=== PATIENT | female | born 1975 | race Caucasian/White ===

== ENCOUNTER 2017-10-03 17:28 | Emergency (ER) | payer BC ==
[2017-10-03 18:02] VITALS: BP 112/67
--- NOTE | 2017-10-03 18:04 | UC ---
UC General HPI - HPI Summary HPI Summary: pt is c/o a sinus infection. she describes this a thick yellow congestion, sinus pain and subjective fever and chills with worsening for over a week. no relief otc flush and decongestants. - History of Current Complaint Stated Complaint: SINUS COMPLAINT Time Seen by Provider: 10/03/17 17:57 Hx Obtained From: Patient Hx Last Menstrual Period: 5 yrs Onset/Duration: Gradual Onset Timing: Constant Aggravating: nothing Alleviating: nothing Associated Signs & Symptoms: Positive: Fever - Allergy/Home Medications Allergies/Adverse Reactions: Allergies Allergy/AdvReac Type Severity Reaction Status Date / Time various foods Allergy Stomach Uncoded 07/13/16 09:45 Cramps Home Medications: Home Medications L.acidoph,Paracasei, B.lactis [Probiotic] 1 each PO DAILY 10/03/17 [History Confirmed 10/03/17] Peppermint Capsule 1 tab PO DAILY 10/03/17 [History] PMH/Surg Hx/FS Hx/Imm Hx - Additional Past Medical History Additional PMH: sinusitis GI/ History: Gastroesophageal Reflux - Surgical History Surgical History: None Surgery Procedure, Year, and Place: C-Sections, 2006 2009. Uterine Ablation, 2010. Tubal Ligation, 2009 - Family History Known Family History: Positive: Hypertension - Social History Lives: With Family Alcohol Use: Occasionally Substance Use Type: None Smoking Status (MU): Never Smoked Tobacco - Immunization History Vaccination Up to Date: Yes Review of Systems Constitutional: Fever Skin: Negative Eyes: Negative ENT: Nasal Discharge, Sinus Congestion, Sinus Pain/Tenderness Respiratory: Negative Cardiovascular: Negative Gastrointestinal: Negative Genitourinary: Negative Motor: Negative Neurovascular: Negative Musculoskeletal: Negative Neurological: Negative Psychological: Negative Is Patient Immunocompromised?: No All Other Systems Reviewed And Are Negative: Yes Physical Exam Triage Information Reviewed: Yes Appearance: Well-Appearing Vital Signs Reviewed: Yes Eye Exam: Normal ENT: Positive: Pharynx normal, Nasal congestion, Nasal drainage - yellow, TMs normal, Sinus tenderness Neck: Positive: Supple, Nontender, No Lymphadenopathy Respiratory: Positive: Lungs clear, Normal breath sounds Cardiovascular: Positive: RRR, No Murmur Abdomen Description: Positive: Nontender, No Organomegaly, Soft Bowel Sounds: Positive: Present Neurological: Positive: Alert Psychological: Positive: Age Appropriate Behavior Skin Exam: Normal Course/Dx - Differential Dx - Multi-Symptom Provider Diagnoses: sinusitis Discharge - Sign-Out/Discharge Documenting (check all that apply): Discharge - Discharge Plan Condition: Stable Disposition: HOME Prescriptions: Amoxicillin/Clavulanate TAB* [Augmentin TAB 875*] 875 mg PO BID #20 tab Patient Education Materials: Sinusitis (ED) Referrals: Ramírez Bertrand MD [Primary Care Provider] - 7 Days - Billing Disposition and Condition Condition: STABLE Disposition: HOME
== END 2017-10-03 18:08 | disposition home or self-care (01) ==
LOC: UCCORT 17:28
DX: J32.9 Chronic sinusitis, unspecified (principal); R50.9 Fever, unspecified; K21.9 Gastro-esophageal reflux disease without esophagitis
CPT/HCPCS: 99212; G0463

== ENCOUNTER 2018-07-25 17:34 | Emergency (ER) | payer BC ==
[2018-07-25 19:14] VITALS: BP 118/64
--- NOTE | 2018-07-25 19:30 | UC ---
Throat Pain/Nasal [place] HPI - HPI Summary HPI Summary: Per nursing secretary "St for 1 day. Daughter + Strep on " -feels like shards of glass. has had strep. feels similar. + glands swollen. minimal cough. no sinus pain. gets sinus infections a lot - History of Current Complaint Chief Complaint: UCGeneralIllness Stated Complaint: SORE THROAT, FEVER Time Seen by Provider: 07/25/18 19:10 Hx Last Menstrual Period: 5 yrs Pain Intensity: 6 - Allergies/Home Medications Allergies/Adverse Reactions: Allergies Allergy/AdvReac Type Severity Reaction Status Date / Time various foods Allergy Stomach Uncoded 07/25/18 19:15 Cramps PMH/Surg Hx/FS Hx/Imm Hx Previously Healthy: Yes - Surgical History Surgical History: None Surgery Procedure, Year, and Place: C-Sections, 2006 2009, Partial Hysterectomy Feb 2017. Uterine Ablation, 2010. Tubal Ligation, 2009 - Family History Known Family History: Positive: Hypertension - Social History Alcohol Use: Occasionally Substance Use Type: None Smoking Status (MU): Never Smoked Tobacco - Immunization History Vaccination Up to Date: Yes Review of Systems All Other Systems Reviewed And Are Negative: Yes Constitutional: Positive: Chills, Fatigue Skin: Positive: Negative Eyes: Positive: Negative ENT: Positive: Sore Throat. Negative: Sinus Pain/Tenderness Respiratory: Positive: Negative Cardiovascular: Positive: Negative Gastrointestinal: Positive: Negative Genitourinary: Positive: Negative Motor: Positive: Negative Neurovascular: Positive: Negative Musculoskeletal: Positive: Negative Neurological: Positive: Negative Psychological: Positive: Negative Is Patient Immunocompromised?: No Physical Exam Triage Information Reviewed: Yes Appearance: Well-Appearing, No Pain Distress, Well-Nourished - very pleasant, reliable historian Vital Signs: Initial Vital Signs Temp 98.5 F 07/25/18 19:11 Pulse 66 07/25/18 19:11 Resp 18 07/25/18 19:11 BP 118/64 07/25/18 19:11 Pulse Ox 100 07/25/18 19:11 Vital Signs Reviewed: Yes Eye Exam: Normal ENT: Positive: Pharyngeal erythema, TMs normal. Negative: Nasal drainage, Tonsillar swelling, Tonsillar exudate, Hoarse voice, Sinus tenderness Dental Exam: Normal Neck exam: Normal Neck: Positive: Supple, Nontender, No Lymphadenopathy Respiratory Exam: Normal Respiratory: Positive: Lungs clear, Normal breath sounds, No respiratory distress, No accessory muscle use. Negative: Crackles, Rhonchi, Stridor, Wheezing Cardiovascular Exam: Normal Cardiovascular: Positive: RRR Abdominal Exam: Normal Musculoskeletal Exam: Normal Neurological Exam: Normal Psychological Exam: Normal Skin Exam: Normal Throat Pain/Nasal Course/Dx - Course Course Of Treatment: rapid strep is negative. ordered TC bc sx are very c/w prev strep hx. She has terrible IBS and hates being on abx. but she is very concerned bc she is going to [place] 07/29 and does not want to have to seek medical care there. I am agreeable w/ giving abx at this time and she would agree to stop if TC is negative. - Differential Dx/Diagnosis Differential Diagnosis/HQI/PQRI: Laryngitis, Peritonsillar Abscess, Pharyngitis , Tonsillitis, URI Provider Diagnosis: Pharyngitis Discharge - Sign-Out/Discharge Documenting (check all that apply): Patient Departure All imaging exams completed and their final reports reviewed: No Studies - Discharge Plan Condition: Stable Disposition: HOME Prescriptions: Cephalexin CAP* [Keflex CAP*] 500 mg PO TID #30 cap Patient Education Materials: Pharyngitis (ED) Referrals: Ramírez Bertrand MD [Primary Care Provider] - Additional Instructions: -Continue the probiotic, you may want to increase it to 2x/day to help prevent IBS symptoms. Ibuprofen/tylenol can be helpful for pain as well. - Billing Disposition and Condition Condition: STABLE Disposition: Home
== END 2018-07-25 20:17 | disposition home or self-care (01) ==
LOC: UCCORT 17:34
DX: J02.9 Acute pharyngitis, unspecified (principal); Z20.828 Contact with and (suspected) exposure to other viral communicable diseases
CPT/HCPCS: 87070; 87651; 99212; G0463